=== PATIENT | female | born 1960 | race Hispanic/Latino ===

== ENCOUNTER 2016-10-25 10:44 | Emergency (ER) | payer SELFPAY ==
[2016-10-25 11:20] VITALS: BP 141/89
[2016-10-25 13:13] LABS: Bilirubin,Urine NEG (Negative); Blood,Urine NEG (Negative); Ketones,Urine NEG (Negative); Leukocyte Esterase,Urine NEG (Negative); Nitrite,Urine NEG (Negative); Protein,Urine <15 mg/dL mg/dL (Negative); Urobilinogen,Urine < 2.0 mg/dL (<2.0); WBC,Urine < 1.0 /HPF (0.0-6.0)
--- NOTE | 2016-10-25 13:50 | Emergency Department Report ---
ED Female HPI - General Chief complaint: Earache Stated complaint: RT EAR PAIN Time Seen by Provider: 10/25/16 13:49 Source: patient Mode of arrival: Ambulatory Limitations: No Limitations - History of Present Illness Onset/Timin -: days(s) - Related Data Allergies Allergy/AdvReac Type Severity Reaction Status Date / Time No Known Allergies Allergy Unverified 10/25/16 11:15 ED Review of Systems ROS: Stated complaint: RT EAR PAIN Other details as noted in HPI ED Past Medical Hx - Past Medical History Previous Medical History?: Yes Hx Asthma: Yes - Surgical History Additional Surgical History: C-Sections X 3 - Social History Smoking Status: Current Every Day Smoker Substance Use Type: None ED Physical Exam - General Limitations: No Limitations ED Course Vital Signs 10/25/16 11:15 Temperature 97.5 F L Pulse Rate 75 Respiratory 20 Rate Blood Pressure 141/89 O2 Sat by Pulse 100 Oximetry Critical care attestation.: If time is entered above; I have spent that time in minutes in the direct care of this critically ill patient, excluding procedure time. ED Disposition Condition: Stable Referrals: PRIMARY CARE, [Primary Care Provider] - 3-5 Days
--- NOTE | 2016-10-25 14:10 | Emergency Department Report ---
ED ENT HPI - General Chief complaint: Earache Stated complaint: RT EAR PAIN Time Seen by Provider: 10/25/16 13:49 Source: patient Mode of arrival: Ambulatory Limitations: No Limitations - History of Present Illness Initial comments: 56-year-old female Smoker presents with complaint of a week and a half of right ear discomfort and inner aspect of the ear, 1 week of sneezing and upper airway congestion. Denies any dysuria or increased urinary frequency and states that she's had this in triage but did not really mean it. Awake alert and oriented 3 does not appear to be in acute distress primarily stating that her right ear is aching. Any purulent drainage from right ear no chest pain cough with slightly yellow sputum palpitations no significant shortness of breath denies any abdominal pain. Patient states she does not have primary medical doctor is requesting referral MD complaint: ear pain Onset/Timin -: week(s) Location: R ear Severity: moderate Severity scale (0 -10): 6 Quality: aching Consistency: constant Improves with: none Associated Symptoms: cough - Related Data Previous Rx's Medication Instructions Recorded Last Taken Type ALBUTEROL Inhaler [ProAir HFA 2 puff IH QID PRN #1 inhalation 10/25/16 Unknown Rx Inhaler] Amoxicillin/K Clav Tab [Augmentin 1 tab PO Q12HR #14 tab 10/25/16 Unknown Rx 875 mg] Ibuprofen [Motrin] 600 mg PO Q8H PRN #25 tablet 10/25/16 Unknown Rx Allergies Allergy/AdvReac Type Severity Reaction Status Date / Time No Known Allergies Allergy Unverified 10/25/16 11:15 ED Dental HPI - General Chief complaint: Earache Stated complaint: RT EAR PAIN Time Seen by Provider: 10/25/16 13:49 Source: patient Mode of arrival: Ambulatory Limitations: No Limitations - Related Data Previous Rx's Medication Instructions Recorded Last Taken Type ALBUTEROL Inhaler [ProAir HFA 2 puff IH QID PRN #1 inhalation 10/25/16 Unknown Rx Inhaler] Amoxicillin/K Clav Tab [Augmentin 1 tab PO Q12HR #14 tab 10/25/16 Unknown Rx 875 mg] Ibuprofen [Motrin] 600 mg PO Q8H PRN #25 tablet 10/25/16 Unknown Rx Allergies Allergy/AdvReac Type Severity Reaction Status Date / Time No Known Allergies Allergy Unverified 10/25/16 11:15 ED Review of Systems ROS: Stated complaint: RT EAR PAIN Other details as noted in HPI Constitutional: denies: chills, fever Eyes: denies: eye pain, eye discharge, vision change ENT: ear pain. denies: throat pain Respiratory: cough. denies: shortness of breath, wheezing Cardiovascular: denies: chest pain, palpitations Endocrine: no symptoms reported Gastrointestinal: denies: abdominal pain, nausea, diarrhea Genitourinary: denies: urgency, dysuria, discharge Musculoskeletal: denies: back pain, joint swelling, arthralgia Skin: denies: rash, lesions Neurological: denies: headache, weakness, paresthesias Psychiatric: denies: anxiety, depression Hematological/Lymphatic: denies: easy bleeding, easy bruising ED Past Medical Hx - Past Medical History Previous Medical History?: Yes Hx Asthma: Yes - Surgical History Additional Surgical History: C-Sections X 3 - Social History Smoking Status: Current Every Day Smoker Substance Use Type: None - Medications Home Medications: Home Medications Medication Instructions Recorded Confirmed Last Taken Type ALBUTEROL Inhaler [ProAir HFA 2 puff IH QID PRN #1 inhalation 10/25/16 Unknown Rx Inhaler] Amoxicillin/K Clav Tab [Augmentin 1 tab PO Q12HR #14 tab 10/25/16 Unknown Rx 875 mg] Ibuprofen [Motrin] 600 mg PO Q8H PRN #25 tablet 10/25/16 Unknown Rx ED Physical Exam - General Limitations: No Limitations General appearance: alert, in no apparent distress - Head Head exam: Present: atraumatic, normocephalic - Eye Eye exam: Present: normal appearance, PERRL, EOMI - ENT ENT exam: Present: mucous membranes moist - Expanded ENT Exam Expanded TM/Canal exam: Erythema: Right TM (right tympanic membrane injection erythema with tiny effusion and no perforation. Patient has no mastoid tenderness no external pain on movement of auricle), Bulging: Right TM, Effusion: Right TM - Neck Neck exam: Present: normal inspection, full ROM - Respiratory Respiratory exam: Present: normal lung sounds bilaterally. Absent: respiratory distress - Cardiovascular Cardiovascular Exam: Present: regular rate, normal rhythm. Absent: systolic murmur, diastolic murmur, rubs, gallop - GI/Abdominal GI/Abdominal exam: Present: soft, normal bowel sounds - Extremities Exam Extremities exam: Present: normal inspection - Back Exam Back exam: Present: normal inspection - Neurological Exam Neurological exam: Present: alert, oriented X3 - Psychiatric Psychiatric exam: Present: normal affect, normal mood - Skin Skin exam: Present: warm, dry, intact, normal color. Absent: rash ED Course Vital Signs 10/25/16 11:15 Temperature 97.5 F L Pulse Rate 75 Respiratory 20 Rate Blood Pressure 141/89 O2 Sat by Pulse 100 Oximetry ED Medical Decision Making - Medical Decision Making A/P: Acute otitis media right ear, URI 1-Augmentin BID x7 days 2-Motrin when necessary, albuterol inhaler urine 3-will give patient a referral to primary care Critical care attestation.: If time is entered above; I have spent that time in minutes in the direct care of this critically ill patient, excluding procedure time. ED Disposition Clinical Impression: Acute otitis media Qualifiers: Otitis media type: suppurative Laterality: right Recurrence: not specified as recurrent Spontaneous tympanic membrane rupture: without spontaneous rupture Qualified Code(s): H66.001 - Acute suppurative otitis media without spontaneous rupture of ear drum, right ear Disposition: DISCHARGED TO HOME OR SELFCARE Is pt being admited?: No Does the pt Need Aspirin: No Condition: Stable Instructions: Otitis Media (ED), Upper Respiratory Infection (ED) Prescriptions: ALBUTEROL Inhaler [ProAir HFA Inhaler] 2 puff IH QID PRN #1 inhalation PRN Reason: Shortness Of Breath Amoxicillin/K Clav Tab [Augmentin 875 mg] 1 tab PO Q12HR #14 tab Ibuprofen [Motrin] 600 mg PO Q8H PRN #25 tablet PRN Reason: Pain Referrals: PRIMARY CARE, [Primary Care Provider] - 3-5 Days LISA PARISI MD [Staff Physician] - 3-5 Days [facility] [Outside] - 3-5 Days Forms: Work/School Release Form(ED) Time of Disposition: 14:11
== END 2016-10-25 14:36 | disposition home or self-care (01) ==
LOC: ED 10:44
DX: H66.001 Acute suppurative otitis media without spontaneous rupture of ear drum, right ear (principal); J45.909 Unspecified asthma, uncomplicated; F17.200 Nicotine dependence, unspecified, uncomplicated
CPT/HCPCS: 81001; 99282

== ENCOUNTER 2018-06-12 13:26 | Emergency (ER) | payer SELFPAY ==
--- NOTE | 2018-06-12 14:24 | Emergency Department Report ---
HPI - General Chief Complaint: Dental/Oral Time Seen by Provider: 06/12/18 14:10 - HPI HPI: This is a 57-year-old female here report that she is having in dental problem and she has serious dental problems she says she has been having a toothache since October 2017 she says she has multiple decayed tooth and missing tooth in her mouth and she needs some help. Denies any sore throat, nasal congestion or runny nose. Patient reports pain is 6 out of 10 and achy worse with eating and talking. Denies any drooling. No alleviating factor despite taking over- the-counter pain medication. Denies any nausea or vomiting. ED Past Medical Hx - Past Medical History Previous Medical History?: Yes Hx Asthma: Yes - Surgical History Past Surgical History?: Yes Additional Surgical History: C-Sections X 3 - Family History Family history: hypertension - Social History Smoking Status: Current Every Day Smoker Substance Use Type: None - Medications Home Medications: Home Medications Medication Instructions Recorded Confirmed Last Taken Type ALBUTEROL Inhaler (OR & NICU) 2 puff IH QID PRN #1 inhalation 10/25/16 Unknown Rx [ProAir HFA Inhaler] Amoxicillin/K Clav Tab [Augmentin 1 tab PO Q12HR #14 tab 10/25/16 Unknown Rx 875 mg] Ibuprofen [Motrin] 600 mg PO Q8H PRN #25 tablet 10/25/16 Unknown Rx Acetaminophen/Codeine [Tylenol 1 tab PO Q6H PRN #14 tab 06/12/18 Unknown Rx /Codeine # 3 tab] Amoxicillin [Amoxicillin TAB] 875 mg PO BID 10 Days #20 tablet 06/12/18 Unknown Rx Ibuprofen [Motrin] 600 mg PO Q8H PRN #12 tablet 06/12/18 Unknown Rx ED Review of Systems ROS: Stated complaint: TOOTH INFECTED Other details as noted in HPI Constitutional: denies: chills, fever Eyes: denies: eye pain, eye discharge ENT: dental pain. denies: ear pain, throat pain, epistaxis, congestion Respiratory: denies: cough, shortness of breath, SOB with exertion, SOB at rest , stridor, wheezing Cardiovascular: denies: chest pain, palpitations, edema, syncope Gastrointestinal: denies: nausea, vomiting Genitourinary: denies: discharge Musculoskeletal: denies: back pain, joint swelling, arthralgia Skin: denies: rash, lesions Neurological: denies: headache, weakness, paresthesias Physical Exam - Physical Exam Vital Signs: Vital Signs 06/12/18 13:41 Temperature 98.5 F Pulse Rate 112 H Respiratory 14 Rate Blood Pressure 115/80 O2 Sat by Pulse 98 Oximetry Vital Signs 06/12/18 06/12/18 13:41 14:21 Temperature 98.5 F Pulse Rate 112 H 84 Respiratory 14 Rate Blood Pressure 115/80 O2 Sat by Pulse 98 Oximetry General: This is a 57-year-old female well-nourished well-developed in no acute distress. Physical Exam: Head: Normocephalic atraumatic Ears:BIateral TM pearly pedraza . Jeff EAC with normal exam. No mastoid bone tenderness. Mouth: Moist, no pharyngeal erythema or exudate . Tongue is normal and oral airways patent. Uvula is midline. No abscess noted but noted dental tenderness around several teeth upper and lower. Patient has widespread dental caries with widespread gingivitis. Multiple missing teeth. Lip is normal. Neck: Nontender to palpate, supple, normal range of motion. No adenopathy. No c- spine tenderness. Nose: Bilateral nasal mucosa normal exam maxillary and frontal sinuses non- tender to palpate. Eyes: Bilateral Sclerae and conjunctiva without injection. Bilateral pupils equal and reactive to light. Bilateral lids are normal. Normal accommodation.BEOMI Lungs: Clear to auscultate bilaterally, no rhonchi wheezes or rales. Normal work of breathing and no chest wall tenderness CV: S1, S2. Regular rate and rhythm negative murmur. Capillary refill is less than 3 seconds Abdomen: Nontender to palpation in all quadrants: No guarding or rebound tenderness. Positive bowel sounds in all quadrants Extremity: No clubbing, cyanosis or edema. +2 pulses in all extremities and no neurovascular compromise Skin: Clean dry and intact, no rashes or lesions ED Course Vital Signs 06/12/18 13:41 Temperature 98.5 F Pulse Rate 112 H Respiratory 14 Rate Blood Pressure 115/80 O2 Sat by Pulse 98 Oximetry Vital Signs 06/12/18 06/12/18 13:41 14:21 Temperature 98.5 F Pulse Rate 112 H 84 Respiratory 14 Rate Blood Pressure 115/80 O2 Sat by Pulse 98 Oximetry - Reevaluation(s) Reevaluation #1: 06/12/18 15:05 Patient stable throughout ED course. ED Medical Decision Making - Medical Decision Making This is a 57-year-old female here reports that she is having toothache since October 2017 she does not have access to a dentist and she needs an antibiotic and pain medication. Assessment/plan Dental caries/toothache-referral to dentist and will place on Motrin and Tylenol 3 Gingivitis-will place on amoxicillin Discussed the patient that she has poor oral care and she will need to follow up with a dentist. I gave her information on multiple dentists in the community to include [facility]. I told her that she needs to call and schedule an appointment for visit in 2-3 days and she voiced understanding. Patient is stable. Vital signs stable she is afebrile and nontoxic in appearance. Patient discharged home in stable condition with prescription for amoxicillin, Motrin and Tylenol 3. Critical care attestation.: If time is entered above; I have spent that time in minutes in the direct care of this critically ill patient, excluding procedure time. ED Disposition Clinical Impression: Gingivitis, Toothache, Dental caries Disposition: DC-01 TO HOME OR SELFCARE Is pt being admited?: No Does the pt Need Aspirin: No Condition: Stable Instructions: Gingivitis (ED), Dental Caries (ED), Toothache (ED) Additional Instructions: Please follow up with dentist as discussed. See alternative dentist and discharge instruction paperwork if needed. Take Motrin for mild to moderate pain and please take this medication with food. Take Tylenol No. 3 for severe pain and please do not drive or operate heavy machinery while taking this medication. Take amoxicillin as prescribed. Please see floss twice daily Gargle listerine mouthwash twice daily Referrals: PRIMARY CARE, [Primary Care Provider] - 2-3 Days [facility] [Outside] - 2-3 Days [facility] [Outside] - 2-3 Days [facility] [Outside] - 2-3 Days Forms: Work/School Release Form(ED)
[2018-06-12 15:30] VITALS: BP 106/78
== END 2018-06-12 15:28 | disposition home or self-care (01) ==
LOC: ED 13:26
DX: K02.9 Dental caries, unspecified (principal); K05.10 Chronic gingivitis, plaque induced; J45.909 Unspecified asthma, uncomplicated; F17.200 Nicotine dependence, unspecified, uncomplicated
CPT/HCPCS: 99282